=== PATIENT | male | born 1975 | race Caucasian/White ===

== ENCOUNTER 2021-05-26 07:46 | Outpatient (REF) | payer BC, SELFPAY ==
--- NOTE | ~2021-05-26 | US_ITS ---
EXAMINATION: US RETROPERITONEAL LIMITED (RENAL ONLY) CLINICAL INFORMATION: Renal calculi. COMPARISON: None TECHNIQUE: Ultrasound of the kidneys is performed with grayscale imaging and color Doppler. FINDINGS: RIGHT KIDNEY: 12.4 x 4.9 x 5.2 cm (SAG x AP x TRV). The kidney is normal in size, contour, and echogenicity. Renal cortical thickness is normal. No hydronephrosis or caliectasis. No renal parenchymal lesion. There are 2 punctate specular echoes each approximately 2 mm in upper and lower poles with associated twinkling artifact on color Doppler suggesting nonobstructing calculi. LEFT KIDNEY: 12.2 x 4.4 x 6.4 cm (SAG x AP x TRV). The kidney is normal in size, contour, and echogenicity. Renal cortical thickness is normal. No calculi or focal parenchymal lesions. No hydronephrosis. US/US renal BI IMPRESSION: 1. Right: 2 nonobstructing calculi each approximately 2 mm. No hydronephrosis or caliectasis. 2. Left: No visible calculi. No hydronephrosis or caliectasis.
== END 2021-05-26 07:47 | disposition home or self-care (01) ==
LOC: HO.US 07:46
PROVIDERS: PCP Hospitalist; Visit Provider Urology
DX: N20.0 Calculus of kidney (principal)
CPT/HCPCS: 76775

== ENCOUNTER → 2021-08-13 13:18 | Outpatient (BNVA) | payer BC, SELFPAY | PROVIDERS: PCP Hospitalist; Visit Provider Urology ==

== ENCOUNTER 2022-07-20 08:21 | Outpatient (REF) | payer BC, SELFPAY ==
--- NOTE | ~2022-07-20 | US_ITS ---
EXAMINATION: US RETROPERITONEAL LIMITED (RENAL ONLY) CLINICAL INFORMATION: Calculus of kidney. COMPARISON: Renal ultrasound 05/26/2021. TECHNIQUE: Real-time imaging of the kidneys. FINDINGS: RIGHT KIDNEY: 12.2 x 5.6 x 6.7 cm (SAG x AP x TRV). The kidney is normal in size, contour, and echogenicity. Renal cortical thickness is normal. No renal calculi or hydronephrosis. Circumscribed avascular echogenic lower pole focus measures 3 x 4 x 3 mm. LEFT KIDNEY: 12.1 x 6.5 x 5.8 cm (SAG x AP x TRV). The kidney is normal in size, contour, and echogenicity. Renal cortical thickness is normal. No calculi or focal parenchymal lesions. No hydronephrosis. US/US renal BI IMPRESSION: A circumscribed avascular echogenic lower pole focus measures 4 mm. This may reflect a small angiomyolipoma. Recommend 6 month follow-up to assess for stability.
== END 2022-07-20 08:22 | disposition home or self-care (01) ==
LOC: HO.US 08:21
PROVIDERS: Visit Provider Urology
DX: N20.0 Calculus of kidney (principal)
CPT/HCPCS: 76775

== ENCOUNTER 2023-08-08 08:04 | Outpatient (REF) | payer BC, SELFPAY ==
--- NOTE | ~2023-08-08 | US_ITS ---
EXAMINATION: US RETROPERITONEAL LIMITED (RENAL ONLY) CLINICAL INFORMATION: Calculus of kidney. COMPARISON: Ultrasound retroperitoneal limited 07/20/2022 and 05/26/2021. TECHNIQUE: Real-time imaging of the kidneys. Limited visualization due to bowel gas. FINDINGS: RIGHT KIDNEY: 13.0 x 6.8 x 6.5 cm (SAG x AP x TRV). No hydronephrosis. No renal calculi. Limited visualization. There is a 0.7 x 0.6 x 0.4 cm right renal lower pole echogenic cortical focus. Ultrasound of 07/20/2022 demonstrated a 0.4 x 0.3 x 0.3 cm lesion. LEFT KIDNEY: 11.6 x 6.5 x 5.4 cm (SAG x AP x TRV). No hydronephrosis. No renal calculi. Limited visualization. US/US renal BI IMPRESSION: A 0.7 cm right renal lower pole echogenic cortical focus, previously measured 0.4 cm on 07/20/2022 and was not identified on the ultrasound of 05/26/2021. Differential considerations include an angiomyolipoma. Dedicated CT scan employing renal mass protocol recommended for further evaluation.
== END 2023-08-08 08:05 | disposition home or self-care (01) ==
LOC: HO.US 08:04
PROVIDERS: Visit Provider Urology
DX: N20.0 Calculus of kidney (principal)
CPT/HCPCS: 76775

== ENCOUNTER 2023-08-24 13:08 | Outpatient (AMB) | payer BC, SELFPAY ==
--- NOTE | 2023-08-24 13:09 | A.OFFVIS_ITS ---
Intake Intake Visit Reasons: 1Y US(set) Intake Note: Patient is present for Ultrasound follow Up Urology Medication: none Blood Thinner:none Paper Rewinder Required: No Accompanied by: Self / Same As Patient Allergies penicillin V Allergy (Unknown, Verified 08/24/23 13:10) Unknown Sulfa (Sulfonamide Antibiotics) Allergy (Unknown, Verified 08/24/23 13:10) Unknown Medication List - Last Reconciled 08/24/23 by Amarjit Rosario MD No Known Home Meds HPI HPI Comments History of Present Illness Details Mr Sood is a very pleasant male. He is a patient of Dr Aceves. He is seen for the following urologic conditions. - urge/frequency - intermittent prostati tis - boggy prostate - nephrolithiasis Telemedicine evaluation 15 minute consultation DoximSolicore mirella Video attempted Twelve month follow-up prostatitis Occasional prostatitis flare-ups that are manageable with anti-inflammatories Had nephrology review due to elevated protein in urine 18-year-old son has kidney stones and he would like be seen Prostatitis/CPPS:?02/11 Lasix renogram shows right mild hydronephrosis without any outlet issues Imagining - 05/15 ultrasound right renal fullness - 06/17 US right 3mm stone - 07/18 US NAD ? They present for further evaluation of, chronic prostatitis.? He is currently being treated with?observation.? Symptoms have been present?for a number of years.? Severity of the symptom?Prostate Symptom Score, mild, have been persistent, and are stable.? Laboratory testing included?02/11 Renal US - cystic renal pelvis right side [facility] Medical History History of kidney stones Hydronephrosis with ureteropelvic junction (UPJ) obstruction Prostatitis Review of Systems Const All systems reviewed & are unremarkable except as noted in HPI and below Reports no additional complaints Resp Reports no additional complaints GI Reports no additional complaints Reports as per HPI Musc Reports no additional complaints Physical Exam Telemedicine evaluation Appropriate responses Regular breathing rate and rhythm HEENT Head: Yes normal to inspection Ears: hearing grossly normal bilaterally Eyes General: appearance normal, both eyes and all related structures Neck Neck: Yes normal visual inspection Chest Chest palpation & inspection: normal inspection of the chest Resp Effort & Inspection: normal respiratory effort and able to speak in complete sentences Assessment & Plan Assessment & Plan (1) Prostatitis: Code(s): N41.9 - Inflammatory disease of prostate, unspecified Qualifiers: Prostatitis type: acute Qualified Code(s): N41.0 - Acute prostatitis (2) Nephrolithiasis: Code(s): N20.0 - Calculus of kidney Plan Stable prostatitis Twelve month follow-up Orders: Orders US renal BI 364 Days N20.0 - Calculus of kidney Patient Instructions: Imaging studies, laboratory and physical exam results were discussed and reviewed in detail. No major barriers to patient understanding were identified. An opportunity to ask questions regarding the treatment plan was provided. All questions were answered. The patient expressed understanding and agreement with the above treatment plan. The patient is aware they should contact our office by phone for worsening of their current condition or the appearance of new urologic symptoms. Compliance is encouraged with any medications and followup testing that is ordered. It is a privilege to participate in the urologic care of your patient. If you have any questions or concerns regarding treatment for the above conditions, or other urologic issues, please do not hesitate to contact me. The office telephone contact is [phone]. This note is constructed using voice recognition software. While every effort has been made to ensure accuracy signal intelligence/electronic warfare errors may have been included. Yours sincerely, Dr Amarjit Rosario MD, [facility] [place] - Urology Providers of Expert, Compassionate Care for the Genitourinary System Telehealth Telehealth Location of provider rendering services: practice address Location of patient: address on file Patient Identification confirmed using: Name, : Yes Telehealth method: video Patient verbally consented to treatment: Yes Patient verbally consented to billing insurance company: Yes Patient informed of any privacy concerns related to visit: Yes Coding Level of Care Code Tele Est Pt Level 4 (51821) Diagnoses Acute prostatitis N41.0 Prostatitis type: acute Nephrolithiasis N20.0
== END 2023-08-24 13:55 | disposition home or self-care (01) ==
LOC: HO.HUSH 13:09
PROVIDERS: PCP Hospitalist; Visit Provider Urology
DX: N41.0 Acute prostatitis (principal); N20.0 Calculus of kidney
CPT/HCPCS: 99213

== ENCOUNTER → 2023-08-24 13:08 | Outpatient (BNVA) | payer BC, SELFPAY | PROVIDERS: PCP Hospitalist; Visit Provider Urology ==

== ENCOUNTER 2024-08-06 07:53 | Outpatient (REF) | payer BC, SELFPAY | END 2024-08-06 07:54 | disposition home or self-care (01) | LOC: HO.US 07:53 | PROVIDERS: Visit Provider Urology | DX: N20.0 Calculus of kidney (principal) | CPT/HCPCS: 76775 ==

== ENCOUNTER 2024-08-22 08:53 | Outpatient (AMB) | payer BC, SELFPAY ==
--- NOTE | 2024-08-22 08:54 | A.OFFVIS_ITS ---
Intake Visit Reasons: 1y/US(SET) Intake Note: Patient is present for Ultrasound follow up Urology Med: None Antibiotic Allergy: None Blood Thinner: None Renal Ultrasound:08/06/24 Exhaust Machine Operator Required: No Accompanied by: Self / Same As Patient Allergies penicillin V Allergy (Unknown, Verified 08/22/24 08:55) Unknown Sulfa (Sulfonamide Antibiotics) Allergy (Unknown, Verified 08/22/24 08:55) Unknown HPI Comments Details: Mr Sood is a very pleasant male. He is a patient of Dr Aceves. He is seen for the following urologic conditions. - urge/frequency - intermittent prostatitis - boggy prostate - nephrolithiasis Telemedicine evaluation 15 minute consultation Doximity mirella Video attempted Twelve month follow-up prostatitis Occasional prostatitis flare-ups that are manageable with anti-inflammatories Renal ultrasound small stone left side No symptoms Surveillance Prostatitis/CPPS:?02/11 Lasix renogram shows right mild hydronephrosis without any outlet issues Imagining - 05/15 ultrasound right renal fullness - 06/17 US right 3mm stone - 07/18 US NAD - 08/19 renal ultrasound small stone left side 4 mm ? They present for further evaluation of, chronic prostatitis.? He is currently being treated with?observation.? Symptoms have been present?for a number of years.? Severity of the symptom?Prostate Symptom Score, mild, have been persistent, and are stable.? Laboratory testing included?02/11 Renal US - cystic renal pelvis right side [facility] Medical History History of kidney stones Hydronephrosis with ureteropelvic junction (UPJ) obstruction Prostatitis Review of Systems Const All systems reviewed & are unremarkable except as noted in HPI and below Reports no additional complaints Resp Reports no additional complaints GI Reports no additional complaints Reports as per HPI Musc Reports no additional complaints Physical Exam Telemedicine evaluation Appropriate responses Regular breathing rate and rhythm HEENT Head: Yes normal to inspection Ears: hearing grossly normal bilaterally Eyes General: appearance normal, both eyes and all related structures Neck Neck: Yes normal visual inspection Chest Chest palpation & inspection: normal inspection of the chest Resp Effort & Inspection: normal respiratory effort and able to speak in complete sentences Telehealth Telehealth Telehealth Platform: [employer] Location of provider rendering services: practice address Location of patient: address on file Patient Identification confirmed using: Name, : Yes Telehealth method: video Patient verbally consented to treatment: Yes Patient verbally consented to billing insurance company: Yes Patient informed of any privacy concerns related to visit: Yes Minutes spent on Phone/Video with Pt.: 15 Assessment & Plan Assessment & Plan (1) Nephrolithiasis: Code(s): N20.0 - Calculus of kidney Category: Medical (2) Prostatitis: Code(s): N41.9 - Inflammatory disease of prostate, unspecified Category: Medical Qualifiers: Prostatitis type: acute Qualified Code(s): N41.0 - Acute prostatitis Plan Twelve month follow-up renal ultrasound Orders: Orders US renal BI 12 Months N20.0 - Calculus of kidney Patient Instructions: Imaging studies, laboratory and physical exam results were discussed and reviewed in detail. No major barriers to patient understanding were identified. An opportunity to ask questions regarding the treatment plan was provided. All questions were answered. The patient expressed understanding and agreement with the above treatment plan. The patient is aware they should contact our office by phone for worsening of their current condition or the appearance of new urologic symptoms. Compliance is encouraged with any medications and followup testing that is ordered. It is a privilege to participate in the urologic care of your patient. If you have any questions or concerns regarding treatment for the above conditions, or other urologic issues, please do not hesitate to contact me. The office telephone contact is [phone]. This note is constructed using voice recognition software. While every effort has been made to ensure accuracy route relief driver errors may have been included. Yours sincerely, Dr Amarjit Rosario MD, [facility] - Urology Providers of Expert, Compassionate Care for the Genitourinary System Coding Level of Care Code Tele Est Pt Level 4 (23526) Diagnoses Nephrolithiasis N20.0 Acute prostatitis N41.0 Prostatitis type: acute
== END 2024-08-22 16:16 | disposition home or self-care (01) ==
LOC: HO.HUSH 08:53
PROVIDERS: Visit Provider Urology
DX: N20.0 Calculus of kidney (principal); N41.0 Acute prostatitis
CPT/HCPCS: 99214

== ENCOUNTER → 2024-08-22 08:53 | Outpatient (BNVA) | payer BC, SELFPAY | PROVIDERS: Visit Provider Urology ==

== ENCOUNTER 2025-08-08 07:54 | Outpatient (REF) | payer BC, SELFPAY ==
--- NOTE | ~2025-08-08 | US_ITS ---
CLINICAL HISTORY: N20.0 - Calculus of kidney US kidneys Comparison: 08/06/2024 Findings: Right kidney normal size and echotexture, 13.0 cm length. No hydronephrosis. Normal color flow. However there appears to be some mild fullness of the extrarenal pelvis with proximal ureter measured up to 15 mm diameter. Left kidney normal size and echotexture, 11.8 cm length. No hydronephrosis. Normal color flow. Imaging through the urinary bladder reveals documentation of the bilateral ureteral jets by Doppler interrogation. Impression: 1. No hydronephrosis; however, there is fullness of the extrarenal right renal pelvis and prominence of the visualized proximal right ureter measuring up to 15 mm diameter. More distally right ureter is obscured by bowel gas. A right ureteral jet is documented by Doppler interrogation. If right ureteral calculus is clinically suspected, consider nonenhanced CT abdomen and pelvis. 2. Unremarkable appearing left kidney. This document has been electronically signed by: Sanchez Gabriel MD on 08/08/2025 14:16:38
--- OUTSIDE RECORDS SUMMARY | 2025-08-08 07:57 | XMS_ITS | Clinical Summary ---
Author Organization [facility] Address [address] [phone] Phone Care Team Providers Care Branding Machine Operator Name Role Phone Radha Garcia Primary Care Provider [phone] Allergies Active Allergy Reactions Criticality Noted Date Comments Penicillin G Swelling 08/15/2023 Sulfadiazine Swelling 08/15/2023 Medications No known medications Active Problems Problem Noted Date Diagnosed Date Nephrolithiasis 02/13/2025 Chronic kidney disease 02/16/2024 Bleeding hemorrhoids 08/12/2023 08/12/2023 Gastroesophageal reflux disease 08/12/2023 08/12/2023 Immunizations Immunization Administration Dates Next Due Tdap 02/24/2013 Social History Tobacco Use Types Packs/Day Years Used Date Smoking Tobacco: Former Cigarettes Tobacco Cessation:Counseling Given: Not Answered Alcohol Use Standard Drinks/Week Comments Yes 0 (1 standard drink = 0.6 oz pur e alcohol) Sex and Gender Information Value Date Recorded Sex Assigned at Not on file Legal Sex Male 10:49 AM EDT Gender Identity Not on file Sexual Orientation Not on file Last Filed Vital Signs Vital Sign Reading Time Taken Comments Blood Pressure 102/64 02/13/2025 7:39 AM EDT Pulse 64 02/13/2025 7:39 AM EDT Temperature - - Respiratory Rate - - Oxygen Saturation 97% 02/13/2025 7:39 AM EDT Inhaled Oxygen Concentration - - Weight 86.6 kg (191 lb) 02/13/2025 7:39 AM EDT Height - - Body Mass Index - - Plan of Treatment Upcoming Encounters Date Type Department Care Team ([facility] st Contact Info) Description 02/11/2026 4:15 PM EDT Office Visit [facility] [address] [phone] Xiang Thurston MD [address] [phone] Health Maintenance Due Date Last Done Comments Hepatitis B Vaccine (1 of 3 - 19+ 3-dose series) 05/14 Pneumococcal Vaccine: Peds ( 0 to 5 Years) and At-Risk Patients (6 to 49 Years) (1 of 2 - PCV) 1995 Colorectal Cancer Screening: Annual FOBT 2025 Colorectal Cancer Screening: Colonoscopy 2025 Colorectal Cancer Screening: Sigmoidoscopy 2025 Influenza Vaccine (#1) 2025 Insurance [facility] Care Teams Branding Machine Operator Relationship Specialty Start Date End Date RadhaAndreyRadha [address] [place] [id number] PCP - General 06/17/23
== END 2025-08-08 07:55 | disposition home or self-care (01) ==
LOC: HO.US 07:54
PROVIDERS: Visit Provider Urology
DX: N20.0 Calculus of kidney (principal)
CPT/HCPCS: 76775

== ENCOUNTER → 2025-08-08 07:55 | Outpatient (BNV) | payer BC, SELFPAY | PROVIDERS: Visit Provider Radiology Diagnostic Radiology | DX: N20.0 Calculus of kidney (principal) | CPT/HCPCS: 76775 ==

== ENCOUNTER 2025-08-21 08:29 | Outpatient (AMB) | payer BC, SELFPAY ==
--- NOTE | 2025-08-21 08:31 | A.OFFVIS_ITS ---
Intake Visit Reasons: 1Y US(set) Intake Note: Reason for Visit: Ultrasound Results Urology Meds: None Blood Thinners: None Labs: None Imaging: Renal Ultrasound- 08/08/2025 Last PVR: None Associate Professor Plant Pathology Required: No Accompanied by: Self / Same As Patient Allergies penicillin V Allergy (Unknown, Verified 08/21/25 08:34) Unknown Sulfa (Sulfonamide Antibiotics) Allergy (Unknown, Verified 08/21/25 08:34) Unknown HPI Comments Details: Mr Sood is a very pleasant male. He is a patient of Dr Aceves. He is seen for the following urologic conditions. - urge/frequency - intermittent prostatitis - boggy prostate - nephrolithiasis Renal ultrasound mild renal pelvis dilatation but no stone seen No symptoms Surveillance Prostatitis/CPPS:?02/11 Lasix renogram shows right mild hydronephrosis without any outlet issues Imagining - 05/15 ultrasound right renal fullness - 06/17 US right 3mm stone - 07/18 US NAD - 08/19 renal ultrasound small stone left side 4 mm - 08/20 renal ultrasound no evidence of stones ? They present for further evaluation of, chronic prostatitis.? He is currently being treated with?observation.? Symptoms have been present?for a number of years.? Severity of the symptom?Prostate Symptom Score, mild, have been persistent, and are stable.? Laboratory testing included?02/11 Renal US - cystic renal pelvis right side [facility] Medical History History of kidney stones Hydronephrosis with ureteropelvic junction (UPJ) obstruction Prostatitis Review of Systems Const Denies chills and Denies fever(s) Card Reports no additional complaints and Denies syncope Resp Denies cough GI Denies abdominal pain and Denies heartburn Reports as per HPI and Denies change in libido Neuro Denies syncope Psych Denies change in libido Endo Denies change in libido Physical Exam Const General: cooperative, healthy appearing, comfortable and no acute distress Orientation/consciousness: patient oriented x3 HEENT Face and sinus: Yes normal facial exam Mouth: moist mucous membranes Neck Neck: Yes normal visual inspection, Yes full ROM and Yes trachea midline Chest Chest palpation & inspection: normal inspection of the chest Resp Effort & Inspection: normal respiratory effort, able to speak in complete sentences and no respiratory distress GI Inspection: Yes normal to inspection Back/Spine/Pelvis Cervical Spine: normal cervical lordosis Thoracic/Lumbar Spine: thoracic and lumbar spine normal to inspection Skin General skin exam: no rashes or lesions noted Neuro General: patient oriented x3, gait normal, tone normal and moves all extremities Extrem General: Yes normal to inspection and Yes capillary refill normal Assessment & Plan Assessment & Plan (1) Nephrolithiasis: Code(s): N20.0 - Calculus of kidney Category: Medical (2) Prostatitis: Code(s): N41.9 - Inflammatory disease of prostate, unspecified Category: Medical Qualifiers: Prostatitis type: acute Qualified Code(s): N41.0 - Acute prostatitis Plan Twelve month follow-up renal ultrasound Orders: Orders US renal BI 12 Months N20.0 - Calculus of kidney Patient Instructions: This note is constructed using voice recognition software. While every effort has been made to ensure accuracy clinical operations leader errors may have been included. Imaging studies, laboratory and physical exam results were discussed and reviewed in detail. No major barriers to patient understanding were identified. An opportunity to ask questions regarding the treatment plan was provided. All questions were answered. The patient expressed understanding and agreement with the above treatment plan. The patient is aware they should contact our office by phone for worsening of their current condition or the appearance of new urologic symptoms. Compliance is encouraged with any medications and followup testing that is ordered. It is a privilege to participate in the urologic care of your patient. If you have any questions or concerns regarding treatment for the above conditions, or other urologic issues, please do not hesitate to contact me. The office telephone contact is [phone]. Sincerely, Dr Amarjit Rosario MD, [facility] - Urology Compassionate Specialist Care for the Genitourinary System Coding Level of Care Code Est Pt Level 4 (37918) Diagnoses Nephrolithiasis N20.0 Acute prostatitis N41.0 Prostatitis type: acute
--- OUTSIDE RECORDS SUMMARY | 2025-08-21 08:54 | XMS_ITS | Clinical Summary ---
Author Organization [facility] Address [address] [phone] Phone Care Team Providers Care Loom Winder Tender Name Role Phone Eileen Garciaa Primary Care Provider [phone] Allergies Active Allergy Reactions Criticality Noted Date [...] Upcoming Encounters Date Type Department Care Team ([facility] st Contact Info) Description 02/11/2026 4:15 PM EDT Office Visit [facility] [address] [phone] Xiang Thurston MD [address] [phone] Health Maintenance Due Date Last Done Comments Hepatitis B Vaccine (1 of 3 - 19+ 3-dose series) 05/14 Pneumococcal Vaccine: Peds ( 0 to 5 Years) and At-Risk Patients (6 to 49 Years) (1 of 2 - PCV) 1995 Colorectal Cancer Screening: Annual FOBT 2025 Colorectal Cancer Screening: Colonoscopy 2025 Colorectal Cancer Screening: Sigmoidoscopy 2025 Influenza Vaccine (#1) 2025 Insurance [facility] Care Teams Loom Winder Tender Relationship Specialty Start Date End Date RadhaAndreyRadha [address] [place] [id number] PCP - General 06/17/23
== END 2025-08-21 08:42 | disposition home or self-care (01) ==
LOC: HO.HUSH 08:30
PROVIDERS: Visit Provider Urology
DX: N20.0 Calculus of kidney (principal); N41.0 Acute prostatitis
CPT/HCPCS: 99214